=== PATIENT | female | born 1980 | race Caucasian/White ===

== ENCOUNTER 2019-11-22 07:58 | Emergency (ER) | payer MEDICAID, SELFPAY ==
[2019-11-22 08:08] VITALS: BP 138/49; PULSE 83; RESP 17; TEMP 36.8; O2SAT 99; BMI 38.7
--- NOTE | 2019-11-22 08:11 | XR_ITS ---
PROCEDURE: XR TIBIA FIBULA LT 2V CLINICAL INDICATION: fall Pain following injury COMPARISON: CR XR ANKLE LT MIN 3V from 11/22/2019 FINDINGS: At the tip of the medial malleolus there is a faint calcific density as seen on the oblique image and could be due to a small avulsion fracture or an area of bony exostosis. Please correlate as the patient's area of pain and tenderness. IMPRESSION: Tiny avulsion fracture versus small area of exostosis at the tip of the medial malleolus otherwise negative Dictated by: Geronimo Mai MD 11/22/2019 09:14 Geronimo Mai MD in [place] 11/22/2019 09:14
--- NOTE | 2019-11-22 08:31 | [facility].EDGENADL ---
ED Disposition Clinical Impression: Ankle sprain and strain Disposition: Home, Self-Care Condition on Discharge: Good Instructions: DI for Ankle Sprain Additional Instructions: You have been evaluated for an ankle injury, diagnosed with a sprain. Please take Tylenol and ibuprofen. Follow-up with your primary care doctor. Return to the emergency department if you have any new or worsening symptoms, pain, other concerns. Referrals: Shantel Ruiz [Primary Care Provider] - Time of Disposition: 08:36 - Critical Care Critical Care Time: No Attestation: On 11/22/19, the high probability of a clinically significant, sudden or life threatening deterioration of the following system(s) required my full and direct attention, intervention and personal management. The time I documented below is in addition to time spent performing reported procedures but includes the following listed in this critical care notation. Medical Decision Making - Medical Records Medical records reviewed: Yes: I reviewed the patient's medical records. - Ad Inquiry Pt receiving controlled substance: No Vital Signs: 11/22/19 08:08 Temperature 98.2 F Temperature Source Oral Pulse Rate [Right Radial] 83 Respiratory Rate 17 Blood Pressure [Right Arm] 138/49 L Blood Pressure Mean [Right Arm] 78 02 Sat by Pulse Oximetry 99 Oxygen Delivery Method Room Air Orders (Tests/Meds): ORDERS Category Date Time Status Ankle XR - Left minimum 3 Views [XR ankle LT min 3V] Exams 11/22/19 08:11 Taken Stat XR tibia fibula LT 2V Stat Exams 11/22/19 08:11 Taken Medical Decision Narrative: In summary this is a 39-year-old female presenting to the emergency department with traumatic left ankle pain. Patient is clinically stable on arrival. Has bony tenderness distal to the lateral malleolus. Most consistent with an ankle sprain. Will obtain plain film x-rays of the ankle to assess for fibula fracture or abnormality of the ankle bones. Will obtain x-ray of the tib-fib. X-rays show no bony abnormality, specifically no fracture of the distal fibula. Patient given an Giorgio bandage for comfort. Recommended to take Tylenol and ibuprofen. Follow-up with your PCP. Stable for discharge. General Adult HPI - General Chief complaint: Extremity Injury, Lower Stated complaint: left ankle pain ao fall Time Seen by Provider: 11/22/19 08:10 Mode of Arrival: Wheelchair Limitations: No Limitations Description of Symptoms (Recalled from ER Triage Doc. by RN): pt presents to ed with c/o left ankle pain after fall this morning when she slipped on a last step. pt denies further injury - History of Present Illness HPI narrative: 39-year-old female presenting to the emergency department with left ankle pain. She was walking down stairs just prior to arrival when she missed the last step. Rolled her ankle inward. Had immediate pain on the side of her ankle near her lateral malleolus. Pain is described as constant and throbbing, sharp with motion. She was unable to walk secondary to pain. No numbness, weakness, tingling in her toes. No pain in her forefoot or upper leg. She has not taken any medications for pain. - Related Data Allergies Allergy/AdvReac Type Severity Reaction Status Date / Time No Known Allergies Allergy Verified 11/22/19 08:11 [facility] History - Hepatitis A Screen Drug use history?: No High risk sexual behaviors?: No History of sexually transmitted infection?: No Currently employed?: No Childcare worker?: No Do you have indoor plumbing?: Yes Do you have electricity?: Yes Attestation statement:: This patient has been screened for Hepatitis A risk factors. Medical History: Denies:: Diabetes Mellitus Type 1, Diabetes Mellitus Type 2 - Social History Smoking Status: Never smoker Alcohol Intake: never Occupational Status: employed ROS Obtained: Yes All systems reviewed & no additional complaints - [employer]
[2019-11-22 08:42] VITALS: BP 118/78; PULSE 72; RESP 15; TEMP 36.6; O2SAT 98
== END 2019-11-22 08:43 | disposition home or self-care (01) ==
PROVIDERS: Emergency Provider Emergency Medicine; PCP Internal Medicine
DX: S93.402A Sprain of unspecified ligament of left ankle, initial encounter (principal); W10.9XXA Fall (on) (from) unspecified stairs and steps, initial encounter; Y92.019 Unspecified place in single-family (private) house as the place of occurrence of the external cause
CPT/HCPCS: 73590; 73610; 99282